=== PATIENT | male | born 1950 | race Caucasian/White ===

== ENCOUNTER 2016-04-06 07:18 | Emergency (ER) | payer BC ==
[2016-04-06 07:41] VITALS: BP 136/67
--- NOTE | 2016-04-06 09:02 | RAD ---
CLINICAL HISTORY: Flank pain, hematuria COMPARISON: October 02, 2005 TECHNIQUE: Multiple contiguous axial CT scans were obtained of the abdomen and pelvis, without intravenous contrast enhancement. Coronal and sagittal multiplanar reformations are submitted for review. Oral contrast was not administered. FINDINGS: The study is limited by the lack of intravenous contrast. This limits evaluation of the solid organs and vasculature. LUNG BASES: The lung bases are clear. LIVER: The liver is diffusely low in attenuation compared to the spleen. There are no focal hepatic parenchymal masses. The liver measures 20 cm in long axis. BILE DUCTS: There is no intrahepatic or extrahepatic biliary dilatation. GALLBLADDER: The gallbladder is normal, without pericholecystic inflammatory change. PANCREAS: The pancreas is normal, without mass or ductal dilatation. SPLEEN: Normal in size and appearance. UPPER GI TRACT: Evaluation of the gastrointestinal tract is limited by incomplete gastric distention. The upper GI tract is unremarkable. SMALL BOWEL AND MESENTERY: The small bowel is normal in contour, course, and caliber. There is no obstruction or dilatation. COLON: There are multiple diverticula of the sigmoid colon. There is no pericolonic inflammatory change. ADRENALS: Normal bilaterally. KIDNEYS: There are multiple bilateral renal calyceal stones. There is a 0.3 cm calculus of the right UPJ with mild pelvocaliectasis and stranding of the perinephric fat on the right. BLADDER: The bladder is smooth in contour. PELVIC ORGANS: The prostate gland is normal. The seminal vesicles are symmetric. AORTA: The aorta is normal. IVC: Unremarkable LYMPH NODES: There is no lymphadenopathy by size criteria. ABDOMINAL WALL: There is no evidence for abdominal wall hernia. BONES AND SOFT TISSUES: Degenerative changes are noted of the spine OTHER: None IMPRESSION: 1. BILATERAL RENAL STONES, INCLUDING A 0.3 CM CALCULUS OF THE RIGHT UPJ WITH MILD RIGHT-SIDED HYDRONEPHROSIS AND PERINEPHRIC STRANDING. 2. HEPATOMEGALY WITH FATTY INFILTRATION OF THE LIVER. 3. DIVERTICULOSIS.
--- NOTE | 2016-04-06 10:14 | UC ---
Sean Banks Matthew, scribed for Idalia Villafana DO on 04/06/16 at 0828 . Back Pain HPI - HPI Summary HPI Summary: A 66 y/o male presents to [facility] with right flank pain since last night. The pain is rated 5/10 in severity, described as sharp, and radiates to the front. The pain was at its worst at 04:30 this morning. Associated symptoms include decreased urination. The patient denies fever, chills, nausea, vomiting, chest pain, SOB, coughing, sore throat, ear ache, and headache. The patient has a Hx of back pain and diabetes. - History of Current Complaint Chief Complaint: UCGeneralIllness Stated Complaint: ABDOMINAL PAIN Time Seen by Provider: 04/06/16 08:15 Hx Obtained From: Patient Onset/Duration: Gradual Onset, Lasting Days - since last night, Still Present Timing: Constant Severity Initially: Moderate Severity Currently: Mild Pain Intensity: 5 Pain Scale Used: 0-10 Numeric Back Pain: Is Discrete @ - right flank, Radiates To - the right side of the abdomen Character: Sharp Associated Signs And Symptoms: Positive: Abdominal Pain - that radiates from the right flank, Flank Pain - right. Negative: Fever, Weakness, Numbness, Tingling, Bladder Incontinence, Bowel Incontinence - Allergies/Home Medications Allergies/Adverse Reactions: Allergies Allergy/AdvReac Type Severity Reaction Status Date / Time Ciprofloxacin [From Cipro] Allergy See Comment Verified 02/25/16 14:39 Sulfa Antibiotics Allergy Rash Verified 02/25/16 14:39 Flavocoxid [From Limbrel] AdvReac FLU LIKE Verified 02/25/16 14:39 SYMPTOMS Lactose Intolerance (GI) AdvReac GI Upset Verified 02/25/16 14:39 PMH/Surg Hx/FS Hx/Imm Hx Endocrine History Of: Reports: Diabetes - ON ORAL MEDICATIONS Cardiovascular History Of: Denies: Hypertension, Pacemaker/ICD Respiratory History Of: Reports: Asthma - IMPROVED SINCE HAVING SINUS SURGERY AROUND 2009, Bronchitis GI/ History Of: Reports: Kidney Stones - HISTORY OF- NONE RECENTLY. Followed by Dr Palacios Denies: Renal Disease - Surgical History Surgical History: Yes Surgery Procedure, Year, and Place: 2009-SINUS SURGERY-WAS TOLD BY ANESTHESIOLOGIST- THAT HE HAD A DIFFICULT [id number]. FINE. SIGMOIDOSCOPY- 6 MONTHS AGO- 2 POLYPS REMOVED. KNEE SURGERY-1994. CARPAL TUNNEL RELEASE-, BILATERAL HANDS. TONSILLECTOMY AND ADENOIDECTOMY- AGE 3. DEQUERVAINS SURGERY- - Family History Known Family History: Positive: Cardiac Disease, Hypertension, Diabetes - Social History Lives: With Family Alcohol Use: Occasionally Substance Use Type: None Smoking Status (MU): Never Smoked Tobacco Review of Systems Constitutional: Negative Skin: Negative Eyes: Negative ENT: Negative Respiratory: Negative Cardiovascular: Negative Gastrointestinal: Abdominal Pain - radiating pain from the right flank Genitourinary: Other - decreased urination frequency Motor: Negative Neurovascular: Negative Musculoskeletal: Myalgia - Right Flank Pain that radites to the abdomen Neurological: Negative Psychological: Negative All Other Systems Reviewed And Are Negative: Yes Physical Exam Triage Information Reviewed: Yes Appearance: Well-Appearing, No Pain Distress, Well-Nourished, Obese Vital Signs: Initial Vital Signs Temp 98.7 F 04/06/16 07:35 Pulse 84 04/06/16 07:35 Resp 16 04/06/16 07:35 BP 136/67 04/06/16 07:35 Pulse Ox 98 04/06/16 07:35 Vital Signs Reviewed: Yes Eyes: Positive: Conjunctiva Clear. Negative: Discharge ENT: Positive: Hearing grossly normal. Negative: Muffled/hoarse voice Dental Exam: Normal Neck: Positive: Supple, Nontender Respiratory: Positive: Lungs clear, Normal breath sounds, No respiratory distress, No accessory muscle use Cardiovascular: Positive: RRR, No Murmur Abdomen Description: Positive: Nontender, Soft. Negative: CVA Tenderness (R), CVA Tenderness (L), Distended, Guarding, McBurney's Point Tenderness Musculoskeletal Exam: Normal Neurological: Positive: Alert, Muscle Tone Normal Psychological Exam: Normal Psychological: Positive: Age Appropriate Behavior Skin Exam: Normal Skin: Positive: Other - warm, dry, normal color Diagnostics - Radiology A/P CT Xray Interpretation: Positive (See Comments) - IMPRESSION: 1. BILATERAL RENAL STONES, INCLUDING A 0.3 CM CALCULUS OF THE RIGHT UPJ WITH MILD RIGHT-SIDED HYDRONEPHROSIS AND PERINEPHRIC STRANDING. 2. HEPATOMEGALY WITH FATTY INFILTRATION OF THE LIVER. 3. DIVERTICULOSIS. Radiology Interpretation Completed By: Radiologist Back Pain Course/Dx - Differential Dx/Diagnosis Differential Diagnosis/HQI/PQRI: Renal Colic, Strain, Sprain Provider Diagnoses: obstructing kidney stone, hydronephrosis, possible pyelo Discharge - Discharge Plan Condition: Stable Disposition: TRANS HIGHER LVL OF CARE FAC Discharge Disposition Comment: The patient needs further care and management at the ED. Referrals: Mahad Siegel MD [Primary Care Provider] - Chris Palacios MD [Medical Doctor] - The documentation as recorded by the Sean edwards Matthew accurately reflects the service I personally performed and the decisions made by , Idalia Villafana DO.
== END 2016-04-06 10:10 | disposition left against medical advice (07) ==
LOC: UCEAST 07:18
DX: N13.2 Hydronephrosis with renal and ureteral calculous obstruction (principal); B96.89 Other specified bacterial agents as the cause of diseases classified elsewhere; Z87.442 Personal history of urinary calculi; E11.9 Type 2 diabetes mellitus without complications; Z79.84 Long term (current) use of oral hypoglycemic drugs; Z87.09 Personal history of other diseases of the respiratory system
CPT/HCPCS: 74176; 81002; 87086; 99212; G0463

== ENCOUNTER → 2016-04-06 10:24 | Emergency (ER) | payer BC ==
[~2016-04-06 10:24] MED LIST: NS 0.9% 1000 ML* 2,000 ML IV ONE; Tamsulosin CAP* 0.4 MG PO ONE
[2016-04-06 10:55] VITALS: BP 169/89
[2016-04-06 11:58] LABS: Hematocrit 42 % (42-52); Hemoglobin 14.1 g/dl (14.0-18.0); Mean Corpuscular HGB Conc 34 g/dl (31-36); Mean Corpuscular Hemoglobin 28 pg (27-31); Mean Corpuscular Volume 83 fL (80-94); Mean Platelet Volume 9 um3 (7.4-10.4); Red Blood Count 5.06 10^6/ul (4.0-5.4); Red Cell Distribution Width 14 % (10.5-15); White Blood Count 9.2 10^3/ul (3.5-10.8)
[2016-04-06 12:07] LABS: Urine Bacteria Absent (Absent); Urine Bilirubin Negative (Negative); Urine Glucose Negative (Negative); Urine Nitrite Negative (Negative)
[2016-04-06 12:14] LABS: Albumin 3.9 g/dL (3.2-5.2); BUN/Creatinine Ratio 16.3 (8-20); C Reactive Protein 5.63 mg/L (< 5.00); Calcium 8.9 mg/dL (8.6-10.3); EGFR African American 113.7 (>60); EGFR Non-African American 88.4 (>60); Globulin 2.9 g/dL (2-4); Potassium 3.9 mmol/L (3.5-5.0); Total Bilirubin 0.7 mg/dL (0.2-1.0); Total Protein 6.8 g/dL (6.4-8.9)
--- NOTE | 2016-04-06 13:29 | ED ---
Keyshawn Banks Adam, scribed for Shankar May MD on 04/06/16 at 1116 . GI/ HPI - HPI Summary HPI Summary: A 66 y/o male presents to the ED from [facility] c/o right flank pain that started around midnight and got progressively worse until 0500 this morning. Currently he rates the pain as 4/10 after taking 1.5 endocet. Symptoms include decreased urine output and nausea due to the pain. He denies any fever or chills. Patient has a hx of kidney stones. Abdominal CT results from [facility] reveal bilateral renal stones, including a .3 cm calculus of the right UPJ with mild hydronephrosis and perinephric stranding, hepatomegaly, and diverticulosis. PMHx is positive for kidney stones and diabetes. FHx includes cardiac disease, HTN, and DM. - History of Current Complaint Chief Complaint: EDFlankPain Time Seen by Provider: 04/06/16 10:57 Stated Complaint: KIDNEY PAIN Hx Obtained From: Patient Onset/Duration: Started Hours Ago Timing: Constant Severity: Moderate Current Severity: Moderate Pain Intensity: 4 Location of Pain: Flank - Right Associated Signs and Symptoms: Positive: Nausea - from pain, Other: - Decreased urine output Aggravating Factor(s): Nothing Alleviating Factor(s): Medication - Endocet - Allergy/Home Medications Allergies/Adverse Reactions: Allergies Allergy/AdvReac Type Severity Reaction Status Date / Time Ciprofloxacin [From Cipro] Allergy See Comment Verified 02/25/16 14:39 Sulfa Antibiotics Allergy Rash Verified 02/25/16 14:39 Flavocoxid [From Limbrel] AdvReac FLU LIKE Verified 02/25/16 14:39 SYMPTOMS Lactose Intolerance (GI) AdvReac GI Upset Verified 02/25/16 14:39 PMH/Surg Hx/FS Hx/Imm Hx Endocrine/Hematology History: Reports: Hx Diabetes - ON ORAL MEDICATIONS Cardiovascular History: Reports: Other Cardiovascular Problems/Disorders - DVT- RIGHT LEG 46 YEARS AGO Denies: Hx Hypertension, Hx Pacemaker/ICD Respiratory History: Reports: Hx Asthma - IMPROVED SINCE HAVING SINUS SURGERY AROUND 2009, Hx Sleep Apnea History: Reports: Hx Kidney Stones - HISTORY OF- NONE RECENTLY. Followed by Dr Palacios Denies: Hx Renal Disease Musculoskeletal History: Reports: Hx Arthritis, Hx Tendonitis - HISTORY OF IN [place], RIGHT WRIST Sensory History: Reports: Hx Contacts or Glasses Denies: Hx Hearing Aid Opthamlomology History: Reports: Hx Contacts or Glasses Neurological History: Reports: Other Neuro Impairments/Disorders - PAIN CLINIC PT Psychiatric History: Denies: Hx Panic Disorder - Surgical History Surgery Procedure, Year, and Place: 2009-SINUS SURGERY-WAS TOLD BY ANESTHESIOLOGIST- THAT HE HAD A DIFFICULT [id number]. FINE. SIGMOIDOSCOPY- 6 MONTHS AGO- 2 POLYPS REMOVED. KNEE SURGERY-1994. CARPAL TUNNEL RELEASE-, BILATERAL HANDS. TONSILLECTOMY AND ADENOIDECTOMY- AGE 3. DEQUERVAINS SURGERY- Hx Anesthesia Reactions: No Infectious Disease History: No Infectious Disease History: Denies: History Other Infectious Disease, Traveled Outside the [place] in Last 30 Days - Family History Known Family History: Positive: Cardiac Disease, Hypertension, Diabetes - Social History Alcohol Use: Occasionally Substance Use Type: Reports: None Smoking Status (MU): Never Smoked Tobacco Review of Systems Constitutional: Negative Negative: Fever Eyes: Negative ENT: Negative Cardiovascular: Negative Respiratory: Negative Positive: Nausea - From pain Positive: pain - Right flank, other - decreased urine output Musculoskeletal: Negative Skin: Negative Neurological: Negative Psychological: Normal All Other Systems Reviewed And Are Negative: Yes Physical Exam Triage Information Reviewed: Yes Vital Signs On Initial Exam: Initial Vitals Temp Pulse Resp BP Pulse Ox 98.5 F 77 16 169/89 99 04/06/16 10:49 04/06/16 10:49 04/06/16 10:49 04/06/16 10:49 04/06/16 10:49 Vital Signs Reviewed: Yes Skin: Positive: Warm, Skin Color Reflects Adequate Perfusion, Dry Head/Face: Positive: Normal Head/Face Inspection Eyes: Positive: EOMI, JOSE ENT: Positive: Normal ENT inspection Neck: Positive: Supple, Nontender Respiratory/Lung Sounds: Positive: Clear to Auscultation, Breath Sounds Present Cardiovascular: Positive: RRR Abdomen Description: Positive: Soft, CVA Tenderness (R) Bowel Sounds: Positive: Present Musculoskeletal: Positive: Normal Neurological: Positive: Normal, Sensory/Motor Intact, Alert, Oriented to Person Place, Time Psychiatric: Positive: Affect/Mood Appropriate Diagnostics - Vital Signs Vital Signs Temp Pulse Resp BP Pulse Ox 04/06/16 10:49 98.5 F 77 16 169/89 99 - Laboratory Lab Results: Lab Results 04/06/16 04/06/16 04/06/16 Range/Units 11:45 11:45 11:45 WBC 9.2 (3.5-10.8) 10^3/ul RBC 5.06 (4.0-5.4) 10^6/ul Hgb 14.1 (14.0-18.0) g/dl Hct 42 (42-52) % MCV 83 (80-94) fL MCH 28 (27-31) pg MCHC 34 (31-36) g/dl RDW 14 (10.5-15) % Plt Count 245 (150-450) 10^3/ul MPV 9 (7.4-10.4) um3 Neut % (Auto) 58.1 (38-83) % Lymph % (Auto) 29.8 (25-47) % Baxter % (Auto) 8.1 (1-9) % Eos % (Auto) 2.9 (0-6) % Baso % (Auto) 1.1 (0-2) % Absolute Neuts (auto) 5.4 (1.5-7.7) 10^3/ul Absolute Lymphs (auto) 2.7 (1.0-4.8) 10^3/ul Absolute Monos (auto) 0.7 (0-0.8) 10^3/ul Absolute Eos (auto) 0.3 (0-0.6) 10^3/ul Absolute Basos (auto) 0.1 (0-0.2) 10^3/ul Absolute Nucleated RBC 0.01 10^3/ul Nucleated RBC % 0.2 INR (Anticoag Therapy) 0.96 (0.89-1.11) APTT 31.6 (26.0-36.3) seconds Sodium (133-145) mmol/L Potassium (3.5-5.0) mmol/L Chloride (101-111) mmol/L Carbon Dioxide (22-32) mmol/L Anion Gap (2-11) mmol/L BUN (6-24) mg/dL Creatinine (0.67-1.17) mg/dL Est GFR ( Amer) (>60) Est GFR (Non-Af Amer) (>60) BUN/Creatinine Ratio (8-20) Glucose (70-100) mg/dL Lactic Acid (0.5-2.0) mmol/L Calcium (8.6-10.3) mg/dL Total Bilirubin (0.2-1.0) mg/dL AST (13-39) U/L ALT (7-52) U/L Alkaline Phosphatase (34-104) U/L C-Reactive Protein (< 5.00) mg/L Total Protein (6.4-8.9) g/dL Albumin (3.2-5.2) g/dL Globulin (2-4) g/dL Albumin/Globulin Ratio (1-3) Lipase (11.0-82.0) U/L Urine Color Straw Urine Appearance Clear Urine pH 5.0 (5-9) Ur Specific [place] 1.004 L (1.010-1.030) Urine Protein Negative (Negative) Urine Ketones Negative (Negative) Urine Blood 2+ H (Negative) Urine Nitrate Negative (Negative) Urine Bilirubin Negative (Negative) Urine Urobilinogen Negative (Negative) Ur Leukocyte Esterase Negative (Negative) Urine WBC (Auto) Trace(0-5/hpf) (Absent) Urine RBC (Auto) 1+(3-5/hpf) H (Absent) Ur Squamous Epith Cells Present H (Absent) Urine Bacteria Absent (Absent) Urine Glucose Negative (Negative) 04/06/16 04/06/16 Range/Units 11:45 11:45 WBC (3.5-10.8) 10^3/ul RBC (4.0-5.4) 10^6/ul Hgb (14.0-18.0) g/dl Hct (42-52) % MCV (80-94) fL MCH (27-31) pg MCHC (31-36) g/dl RDW (10.5-15) % Plt Count (150-450) 10^3/ul MPV (7.4-10.4) um3 Neut % (Auto) (38-83) % Lymph % (Auto) (25-47) % Baxter % (Auto) (1-9) % Eos % (Auto) (0-6) % Baso % (Auto) (0-2) % Absolute Neuts (auto) (1.5-7.7) 10^3/ul Absolute Lymphs (auto) (1.0-4.8) 10^3/ul Absolute Monos (auto) (0-0.8) 10^3/ul Absolute Eos (auto) (0-0.6) 10^3/ul Absolute Basos (auto) (0-0.2) 10^3/ul Absolute Nucleated RBC 10^3/ul Nucleated RBC % INR (Anticoag Therapy) (0.89-1.11) APTT (26.0-36.3) seconds Sodium 136 (133-145) mmol/L Potassium 3.9 (3.5-5.0) mmol/L Chloride 101 (101-111) mmol/L Carbon Dioxide 26 (22-32) mmol/L Anion Gap 9 (2-11) mmol/L BUN 14 (6-24) mg/dL Creatinine 0.86 (0.67-1.17) mg/dL Est GFR ( Amer) 113.7 (>60) Est GFR (Non-Af Amer) 88.4 (>60) BUN/Creatinine Ratio 16.3 (8-20) Glucose 169 H (70-100) mg/dL Lactic Acid 3.5 H* (0.5-2.0) mmol/L Calcium 8.9 (8.6-10.3) mg/dL Total Bilirubin 0.70 (0.2-1.0) mg/dL AST 29 (13-39) U/L ALT 30 (7-52) U/L Alkaline Phosphatase 62 (34-104) U/L C-Reactive Protein 5.63 H (< 5.00) mg/L Total Protein 6.8 (6.4-8.9) g/dL Albumin 3.9 (3.2-5.2) g/dL Globulin 2.9 (2-4) g/dL Albumin/Globulin Ratio 1.3 (1-3) Lipase 65 (11.0-82.0) U/L Urine Color Urine Appearance Urine pH (5-9) Ur Specific [place] (1.010-1.030) Urine Protein (Negative) Urine Ketones (Negative) Urine Blood (Negative) Urine Nitrate (Negative) Urine Bilirubin (Negative) Urine Urobilinogen (Negative) Ur Leukocyte Esterase (Negative) Urine WBC (Auto) (Absent) Urine RBC (Auto) (Absent) Ur Squamous Epith Cells (Absent) Urine Bacteria (Absent) Urine Glucose (Negative) Result Diagrams: 04/06/16 11:45 04/06/16 11:45 Lab Statement: Any lab studies that have been ordered have been reviewed, and results considered in the medical decision making process. GIGU Course/Dx - Course Assessment/Plan: DISCUSSED RESULTS WITH PATIENT/FAMILY/DR LAWRENCE. NO EVIDENCE OF UTI. DISCHARGE HOME STABLE. - Diagnoses Provider Diagnoses: Kidney stones - Physician Notifications Discussed Care Of Patient With: Dr. Lawrence (Urology, 13:05) - Recommends treatment for kidney stone and follow up outpatient. Discharge - Discharge Plan Condition: Stable Disposition: HOME Prescriptions: Tamsulosin CAP* [Flomax CAP*] 0.4 mg PO DAILY #5 cap Patient Education Materials: Kidney Stones (ED) Referrals: Mahad Siegel MD [Primary Care Provider] - Gustavo Lawrence MD [Medical Doctor] - [facility] [Provider Group] Chris Palacios MD [Medical Doctor] - Additional Instructions: FOLLOW UP WITH YOUR UROLOGIST. RETURN TO THE EMERGENCY DEPARTMENT FOR ANY WORSENING OF YOUR CONDITION; PAIN, FEVER, VOMITING, YOU FEEL ILL OR QUESTIONS OR CONCERNS. The documentation as recorded by the Keyshawn edwards Adam accurately reflects the service I personally performed and the decisions made by me, Shankar May MD.
== END | disposition home or self-care (01) ==
LOC: ED 10:24
DX: N20.0 Calculus of kidney (principal); R10.9 Unspecified abdominal pain; R11.0 Nausea
CPT/HCPCS: 36415; 80053; 81003; 81015; 83605; 83690; 85025; 85610; 85730; 86140; 96360; 99282

== ENCOUNTER 2018-08-10 05:35 | Day surgery (SDC) | payer BC ==
--- NOTE | 2018-08-07 22:34 | HP ---
PREOPERATIVE HISTORY AND PHYSICAL: DATE OF SURGERY: 08/10/18 ATTENDING SURGEON: Dr. Joe Sebastian.* (DICTATED BY LLUVIA BEJARANO) PROCEDURE: Right shoulder arthroscopic rotator cuff repair, decompression, debridement, arthroscopic excision of distal clavicle, possible biceps tenodesis. CHIEF COMPLAINT: Right shoulder pain. HISTORY OF PRESENT ILLNESS: Sravan is a 68-year-old male who presents to the clinic for right shoulder pain due to a rotator cuff tear, AC joint arthritis, and biceps tendinitis. He has failed conservative measures including therapeutic injection. He has therefore agreed to undergo right shoulder arthroscopic rotator cuff repair, decompression, debridement, arthroscopic excision of distal clavicle and possible biceps tenodesis with Dr. Sebastian on . PAST MEDICAL HISTORY: 1. Diabetes. 2. High cholesterol. 3. Obstructive sleep apnea. 4. Asthma/allergies. 5. Hypertension. 6. Kidney stones. 7. BPH. 8. Hemorrhoids. PAST SURGICAL HISTORY: 1. Tonsillectomy and adenoidectomy. 2. Knee surgery. 3. Bilateral carpal tunnel release. 4. Right de Quervain's. 5. Sinus surgery. The patient denies prior complications with anesthesia. MEDICATIONS: 1. Lovaza 1 g 2 by mouth twice a day. 2. Endocet 5/325 one every day as needed for pain. 3. CPAP at night. 4. Atorvastatin 10 mg at bedtime. 5. Metformin HCL 500 mg two twice a day. 6. Triamcinolone topical as needed. 7. Albuterol sulfate 0.083% one via nebulizer 4 times a day as needed. 8. Budesonide 0.5 mg/2 mL one dose twice a day via nebulizer as needed. 9. Ammonium lactate 12% to affected area twice a day as needed. 10. Viagra 100 mg 0.5 to 1 tab one hour before intercourse. 11. Ventolin HFA 108-90 base mcg/ACT 2 puffs 4 times a day as needed. 12. QVAR 80 mcg 2 puffs a day as needed. 13. Nasacort 24 hours 55 mcg/ACT 2 sprays both nares once daily. 14. Lisinopril 5 mg 1 by mouth every day. 15. Glipizide 10 mg 1 by mouth daily. ALLERGIES: CIPRO, SULFA, ANTIBIOTICS, LIMBREL, lactose intolerance, FLAVOCOXID and CHOCOLATE ALLERGENIC EXTRACT. FAMILY HISTORY: Positive for heart disease, diabetes, hypertension. Denies family history of DVT or PE. SOCIAL HISTORY: He lives with his spouse. He is a [employer] professor. He denies tobacco use. He reports occasional alcohol consumption. He denies illegal drug use. REVIEW OF SYSTEMS: A 14-point review of systems was reviewed with the patient. Positive for current complaint, otherwise negative. Denies fever, chills, chest pain, shortness of breath, history of bleeding disorder, history of DVT or PE. PHYSICAL EXAMINATION GENERAL: A 68-year-old well-developed, well-nourished male, in no acute distress. VITALS: Height 64, weight 275, blood pressure 154/68, respiratory rate 18. BMI 47.2. HEENT: Normocephalic, atraumatic. PERRLA. Throat clear. NECK: Supple. PULMONARY: Lungs are clear to auscultation bilaterally. No wheezing, rhonchi, or rales. CARDIO: Regular rat and rhythm. S1, S2. No murmurs, gallops, or rubs. No edema. ABDOMEN: Positive bowel sounds. Soft, nontender. NEURO: Alert and oriented x3. Cranial nerves grossly intact. MUSCULOSKELETAL: Right upper extremity: Skin is intact. No warmth or erythema. Nontender to palpation. Forward flexion 160, abduction 90, external rotation 45, internal rotation to lumbar spine. +4/5 strength to rotator cuff testing obtained. Positive impingement, [place], [place], [place]. +2 radial pulse. Sensation intact to light touch distally. Left upper extremity: Skin is intact. No warmth or erythema. Nontender to palpation. Full strength with range of motion. Neurovascularly intact. DIAGNOSTIC STUDIES: MRI revealed full thickness tear of the supraspinatus tendon and acromial bone spurring, and AC joint arthritis. IMPRESSION: Right shoulder rotator cuff tear, acromioclavicular joint arthritis , and biceps tendinitis. PLAN: The patient is scheduled to undergo a right shoulder arthroscopic rotator cuff repair, decompression, debridement, arthroscopic excision of distal clavicle, and possible biceps tenodesis with Dr. Sebastian on 08/10/18. He will follow up in 10 to 14 days postop for followup and suture removal and Percocet will be used for postop pain management. LLUVIA BEJARANO [id number]/[facility] #: [id number] [facility]
[~2018-08-10 05:35] MED LIST changes: +Buffered Lidocaine 1% SYRIN* 1 ML/SYRINGE INTRADERM ONE; -NS 0.9% 1000 ML* 2,000 ML IV ONE; -Tamsulosin CAP* 0.4 MG PO ONE
[2018-08-10] MEDS ORDERED: Dexamethasone IV* 4 MG/ML 1 ML (4 MG) ONE (05:55)
[2018-08-10] MEDS ORDERED: ceFAZolin 2 GM PREMIX in ORs 2 GM/50 ML BAG IVPB ONE (05:55)
[2018-08-10] MEDS ORDERED: Buffered Lidocaine 1% SYRIN* 1 ML/SYRINGE INTRADERM ONE (05:56)
[2018-08-10] MEDS ORDERED: ceFAZolin 1 GM in Dextrose (*) 1 GM/50 ML BAG IVPB ONE (05:56)
[2018-08-10] MEDS ORDERED: Famotidine IV* 10 MG/ML 2 ML (20 mg) ONE (05:56)
[2018-08-10] MEDS ORDERED: Dexamethasone IV* 4 MG/ML 1 ML (4 MG) IV SLOW PU ONE (06:00)
[2018-08-10] MEDS ORDERED: Lactated Ringers 1000 ML Bag* 1,000 ML IV SCH (06:00)
[2018-08-10] MEDS ORDERED: Famotidine IV* 10 MG/ML 2 ML (20 mg) IV ONE (06:00)
[2018-08-10] MEDS ORDERED: ROPIVACAINE 5 MG/ML 30 ML BTL (0.5%) ONE (06:58)
[2018-08-10] MEDS ORDERED: Midazolam* 1 MG/ML 5 ML VIAL (5 MG) ONE (07:11)
[2018-08-10] MEDS ORDERED: fentaNYL* 50 MCG/ML 2 ML VIAL (100 MCG VIAL) ONE ×4 (07:11→10:02)
[2018-08-10] MEDS ORDERED: Rocuronium* 10 MG/ML VIAL ONE (07:11)
[2018-08-10] MEDS ORDERED: Propofol* 10 MG/ML 20 ML BTL ONE (07:12)
[2018-08-10] MEDS ORDERED: EPHEDrine (Pressors)* 50 MG/ML VIAL ONE (07:12)
[2018-08-10] MEDS ORDERED: Ondansetron INJ* 2 MG/ML VIAL ONE ×2 (07:12→12:34)
[2018-08-10] MEDS ORDERED: Lidocaine 2% PF * 5 ML VIAL ONE (07:12)
[2018-08-10] MEDS ORDERED: Naloxone* 0.4 MG/ML 1 ML VIAL IV PRN (08:32)
[2018-08-10] MEDS ORDERED: oxyCODONE/Acetamin 5/325 MG* TAB PO PRN (08:32)
[2018-08-10] MEDS ORDERED: Ondansetron INJ* 2 MG/ML VIAL IV PRN (08:32)
[2018-08-10] MEDS ORDERED: DiMENhydriNATE IV* 50 MG/ML VIAL IV PUSH PRN (08:32)
[2018-08-10] MEDS ORDERED: Sugammadex * 200 MG/2 ML VIAL IV PUSH ONE (09:56)
[2018-08-10] MEDS: fentaNYL* 50 MCG/ML 2 ML VIAL (100 MCG VIAL) IV PRN ×2 (10:05→10:15)
[2018-08-10] MEDS ORDERED: oxyCODONE/Acetamin 5/325 MG* TAB ONE ×2 (10:25→12:14)
[2018-08-10] MEDS ORDERED: HYDROmorphone INJ1* 1 MG/ML SYRINGE ONE (10:25)
[2018-08-10] MEDS: HYDROmorphone INJ1* 1 MG/ML SYRINGE IV PRN ×4 (10:27→11:32)
[2018-08-10 12:01] VITALS: BP 150/88
--- NOTE | 2018-08-10 13:05 | OP ---
DATE OF OPERATION: 08/10/18 - [facility] DATE OF : 46 SURGEON: Joe Sebastian MD. E [employer] MARKETING MANAGER: LLUVIA Snider. Quality Officer was needed for the entirety of the case to help with positioning, retraction, and was utilized throughout all portions of the case. ANESTHESIOLOGIST: Dr. Archuleta. ANESTHESIA: General interscalene block. PRE-OP DIAGNOSES: Right shoulder full-thickness tear of the rotator cuff with biceps rupture and acromioclavicular joint arthritis. POST-OP DIAGNOSIS: Right shoulder full thickness tear of the rotator cuff with biceps rupture and acromioclavicular joint arthritis. OPERATIVE PROCEDURE: Right shoulder arthroscopy: 1. Extensive glenohumeral debridement. 2. Decompression and debridement. 3. Distal clavicle excision. 4. Rotator cuff repair in double row fashion. IMPLANTS USED: Two Multifixes, 2 Healicoils. INDICATIONS: Sravan De Leon is a 68-year-old male who sustained injury to his shoulder when he caught his toe in [place] 03[place]03[place]; he had immediate pain and injury. He failed a course of physical therapy, anti- inflammatories and has elected to proceed with surgical treatment. Risks and benefits were discussed at length including, but not limited to bleeding, infection; damage to nerves, vessels, surrounding structures; wound nonhealing, persistent pain, need for surgery, scarring, stiffness, incomplete relief of symptoms and risk of anesthesia, need for further surgery and re-tear. DESCRIPTION OF PROCEDURE: The patient was greeted in the preoperative area by the attending surgeon. The correct extremity was marked and consent was confirmed. The patient then underwent interscalene nerve block by the anesthesiologist after which he was brought back to operating suite. He was placed in a supine position on the operating table. He then underwent general anesthesia with endotracheal intubation. The patient was then placed in the left lateral decubitus position with an axillary roll, all bony prominences were padded. He was secured with the peg board. The right arm was draped unsterile with 10 pounds of traction. The right shoulder was then prepped and draped in usual sterile fashion beginning with chlorhexidine soap, scrub and alcohol wipe and a final prep with ChloraPrep. After appropriate surgical pause indicating site, side, procedure, and administration of antibiotics, standard postero-lateral portal was made sharply with an 11 blade. The scope was introduced into the joint, and the joint was examined. There was obvious tearing of the biceps tendon with significant frayed tissue, and the biceps stump was flapped into the joint. The glenohumeral joint had grade 1 to 2 changes. The inferior recess was intact, but had significant synovitis. Portion of the supra and subscap were torn and retracted and still in confluence with each other. The infraspinatus seemed to be intact. The inferior border portion of the subscap was intact. The biceps stump and anterior, posterior, superior labrum were debrided back using a shaver. Once this was complete, attention was directed to subacromial space. With the scope in the subacromial space, the lateral portal was made in an outside- in fashion. The shaver was used to debride back the abundant thick bursa that was present. It was very hyperemic and inflamed. The undersurface of the acromion was then skeletonized using electrocautery device. The 4,0 oval andres was then used to do an acromioplasty extending into the AC joint, which was then offloaded, debris was removed. Once this was done, attention was directed to the distal clavicle excision with the andres brought into the anterior wound. The 4,0 oval andres was used to remove the distal 8 mm of the clavicle and remove any areas of impingement. Care was maintained to protect the CC ligaments. After this was completed, all fluid and debris was removed from this portion of the case. Attention was directed to the rotator cuff. This was a full-thickness, medium- size tear involving the supra and subscapularis. The cuff tissue was good quality. The cuff tissue was carefully mobilized and released from adhesions. The greater tuberosity was repaired using electrocautery device, the rasp as well as the 4,0 oval andres to gentle decorticate. There was a remaining stump that had to be debrided back on the greater tuberosity. Once this was done, two 4.75 Healicoils were placed, one was placed more anteriorly to grab the subscap fibers, and both along the medial row. The sutures were passed in a horizontal mattress configuration. The cuff tissue was fairly thick at some point indicating probably a piece had flapped back on itself. Once the sutures were passed, they were tied down using center knot-tying technique. This helped to reapproximate the cuff to the bone. Then, through 2 separate Multifixes, one strand from each knot was then placed through an anterolateral Multifix for double row fixation. The remaining strands were placed through the second Multifix sutures placed for posterior lateral double row. This helped to compress the footprint and provide for double row fixation. Final images were obtained. The wound was copiously irrigated with sterile saline. Portals were closed with 3-0 nylon. Sterile dressings were applied, Cryo/Cuff and UltraSling was applied. He was awoken from anesthesia and transferred to PACU in stable condition. POSTOPERATIVE PLAN: He will be nonweightbearing. He will be in a sling for 6 weeks. Discharged on pain medication. DVT prophylaxis was considered, but deferred due to no previous personal or family history. I will see the patient back in 10 to 14 days. [id number]/[facility] #: [id number] LISET
== END 2018-08-10 15:10 | disposition home or self-care (01) ==
LOC: OR 05:35
PROVIDERS: ATTEND Orthopaedic Surgery
DX: S46.011A Strain of muscle(s) and tendon(s) of the rotator cuff of right shoulder, initial encounter (principal); S46.111A Strain of muscle, fascia and tendon of long head of biceps, right arm, initial encounter; W01.0XXA Fall on same level from slipping, tripping and stumbling without subsequent striking against object, initial encounter; Y92.481 Parking lot as the place of occurrence of the external cause; M19.011 Primary osteoarthritis, right shoulder; G89.18 Other acute postprocedural pain; E11.9 Type 2 diabetes mellitus without complications; Z79.84 Long term (current) use of oral hypoglycemic drugs; G47.33 Obstructive sleep apnea (adult) (pediatric); J45.909 Unspecified asthma, uncomplicated; I10 Essential (primary) hypertension
CPT/HCPCS: A9270-GY; C1713; J0690; J1100; J1170; J2250; J2405; J2704; J2795; J3010

== ENCOUNTER 2019-06-03 22:01 | Emergency (ER) | payer BC ==
--- OUTSIDE RECORDS SUMMARY | 2019-06-03 22:15 | XMS REPORT | Continuity of Care Document ---
:1950 External Reference #:[id number] Author Name CRISTINA Hdez Address [address] [place] [address] Care Team Providers Name Role Phone Chris Palacios - Urology Care Team Information Pharmacometrician [phone] Mahad Siegel MD - Family Medicine Care Team Information Pharmacometrician Jennifer Lauren MD - Neurology Care Team Information Pharmacometrician [phone] Gastroenterology [facility] - Care Team Information Pharmacometrician [phone] Gastroenterology Zabrina Pace MS - [place] Care Team Information Pharmacometrician [phone] [place] Almodovar - Surgery Care Team Information Pharmacometrician [phone] Joe Sebastian - Orthopaedic Surgery Care Team Information Pharmacometrician Problems Active Problems Provider Date Hyperlipidemia Mahad Siegel M.D. Onset: 03/05/2008 Benign prostatic hypertrophy without outflow Mahad Siegel M.D. Onset: 10/2007 obstruction Asthma without status asthmaticus Mahad Siegel M.D. Onset: 03/05/2008 Allergic rhinitis Mahad Siegel M.D. Onset: 03/05/2008 Sleep apnea Mahad Siegel M.D. Onset: 03/17/2010 Type II diabetes mellitus uncontrolled Mahad Siegel M.D. Onset: 2013 Disorder of shoulder Mahad Siegel M.D. Onset: 07/19/2013 Benign neoplasm of colon Mahad Siegel M.D. Onset: 05/10/2017 Mild intermittent asthma Mahad Siegel M.D. Onset: 08/04/2016 Urolith Mahad Siegel M.D. Onset: 08/04/2016 Degeneration of lumbar intervertebral disc Mahad Siegel M.D. Onset: 08/04 Metabolic syndrome X Mahad Siegel M.D. Onset: 03/11/2016 Social History Type Date Description Comments Sex Unknown Tobacco Use Start: Unknown Nonsmoker ETOH Use Rare Tobacco Use Start: Unknown Patient has never smoked Smoking Status Reviewed: 04/10/19 Patient has never smoked Allergies, Adverse Reactions, Alerts Active Allergies Reaction Severity Comments Date Sulfa Drugs Lactose Intolerance 09/06/2008 Flavocoxid fever 04/11/2012 Limbrel fever 04/11/2012 Ciprofloxacin ruptured ligament in knee 07/19/2013 Medications Active Medications SIG Qnty Indications Ordering Provider Date Freestyle Lite Test test blood sugar 100units E11.9 Mahad Siegel, 04/18 twice a day or M.D. Strips as directed dx: e11.9 last seen 04/10/2019 Freestyle Lancets test blood 100units E11.9 Mahad Siegel, 04/18/2019 glucose twice [facility] - dx: e11.9 - last seen 04/10/2019 Pen Afton use daily with 200units Mahad Siegel, 03/09/2019 32G X 4 victoza M.D. mm Misc Victoza 0.6 mg SC qd 9ml E11.65 Mahad Siegel, 03/07/2019 18mg/3ML x1wk, then 1.2 M.D. Solution Pen-Inject mg once daily Lmpaq-4-Geao Ethyl Take 2 Capsules 360caps Mahad Siegel, 05/30/2018 Esters Twice Daily M.D. 1gm Capsules Glipizide 1 by mouth two 180tabs E11.65 Lenore 10/18/2017 10mg times a day Carlos, HAND GRINDER Tablets Lisinopril Take One Tablet 90tabs E11.65 Lenore 08/04/2016 5mg By Mouth Every Carlos, HAND GRINDER Tablets Day Nystatin-Triamcinolo aply to affected 60units B37.2 Mahad Siegel, 09/04 ne area 3 to 4 M.D. times a day 107132-5.1Unit/GM-% until clear Cream Atorvastatin Calcium Take 1 Tablet AT 90tabs Mahad Siegel, 10/03/2013 Bedtime. M.D. 10mg Tablets Metformin HCL take 2 tablets 360tabs E11.65 Mahad Siegel, 10/03/2013 500mg twice a day M.D. Tablets Budesonide 2cc's every 8 60ml Mahad Siegel, 03/27/2013 0.5mg/2ML hours as needed M.D. Suspension wheezing Ammonium Lactate apply daily 3units Mahad Siegel, 09/22/2012 12% M.D. Lotion Endocet 1 every night at 30tabs Shannan C. 03/14/2012 5-325mg bedtime as ESPERANZA Denney Tablets needed for pain Xyzal Allergy 24HR 1 by mouth every Unknown day 5mg Tablets Qnasl 2 sprays in each Unknown 80mcg/Act nostril daily Aerosol Stool Softener Unknown 250mg Capsules Medical Marijuana Unknown History Medications Freestyle Lite Test test blood glucose E11.9 Mahad Siegel, 04/18/2019 - twice daily dx M.D. 04/18/2019 Strips e11.9 last seen 04/10/2019 Gabapentin take one capsule 90caps M51.36 Mahad Siegel, 11/19/2018 - 100mg by mouth three M.D. 03/07/2019 Capsules times a day as needed for pain Immunizations CPT Code Status Date Vaccine Reaction Lot # [id number] Given 12/16/2018 High-Dose, Influenza Virus [id number] Vacccine-fluzone 65 and older 44121 Given 12/09/2017 High-Dose, Influenza Virus [id number] Vacccine-fluzone 65 and older 49492 Given 01/16/2017 High-Dose, Influenza Virus [id number] Vacccine-fluzone 65 and older 72425 Given 01/13/2016 High-Dose, Influenza Virus [id number] Vacccine-fluzone 65 and older 27387 Given 01/18/2015 Influenza Vac, Quadrivalent, [id number] [address] Given 11/09/2014 Pneumococcal Conjugate [id number] Vacc-13 26415 Given 01/04/2014 DO Not Use Split Influenza [id number] Virus Vaccine 25394 Given 12/07/2012 DO Not Use Split Influenza [id number] Virus Vaccine 78874 Given 12/28/2011 DO Not Use Split Influenza Virus Vaccine 94660 Given 12/28/2011 DO Not Use Split Influenza no reaction noted [id number] Virus Vaccine 27975 Given 12/17/2010 DO Not Use Split Influenza [id number] Virus Vaccine 54122 Given 12/25/2009 DO Not Use Split Influenza [id number] Virus Vaccine 73650 Given 11/08/2009 Tdap Tetanus, W Pertussis [id number] 34728 Given 12/10/2008 DO Not Use Split Influenza [id number] Virus Vaccine 02211 Given 03/30/2008 Zostivax [id number] 89963 Given 01/07/2008 DO Not Use Split Influenza [id number] Virus Vaccine 08505 Given 01/22/2007 DO Not Use Split Influenza [id number] Virus Vaccine 42960 Given 02/13/2006 DO Not Use Split Influenza [id number] Virus Vaccine 12552 Given 01/08/2005 DO Not Use Split Influenza Virus Vaccine 08855 Given 05/29/2004 Pneumococcal Immunization 14942 Given 11/12/2003 Td Immunization, For Use In Individuals 7 Years Or Older 45208 Given 11/12/2003 Td Immunization, For Use In Individuals 7 Years Or Older 65531 Given 01/18/2003 DO Not Use Split Influenza Virus Vaccine 35154 Given 01/18/2003 DO Not Use Split Influenza Virus Vaccine 40031 Given 02/01/2002 DO Not Use Split Influenza Virus Vaccine 65950 Given 12/29/2000 Influenza Immunization 81821 Given 12/29/2000 DO Not Use Split Influenza Virus Vaccine 88017 Given 01/12/2000 DO Not Use Split Influenza Virus Vaccine 51106 Given 01/17/1999 DO Not Use Split Influenza Virus Vaccine 94444 Given 01/03/1998 Influenza Immunization 01907 Given 01/03/1998 Influenza Immunization 40738 Given 01/05/1997 Influenza Immunization Vital Signs Date Vital Result Comment 05/04/2019 1:11pm BP Systolic 140 mmHg BP Diastolic 80 mmHg Heart Rate 80 /min Body Temperature 97.7 F Respiratory Rate 20 /min Weight 273.00 lb 04/10/2019 8:52am BP Systolic 126 mmHg BP Diastolic 64 mmHg Heart Rate 72 /min Body Temperature 96.9 F Height 64 inches 5'4" Weight 273.00 lb BMI (Body Mass Index) 46.9 kg/m2 Results Test Acquired Date Facility Test Result H/L Range Note Comprehensive 04/10/2019 [facility] Neeta(a) Sodium 134 mEq/L 134-149 Metabolic Prof Potassium 4.1 mEq/L 3.6-5.5 Chloride 104 mEq/L 94-112 Carbon Dioxide 26 mEq/L 21-32 Glucose 214 mg/dL High 70-105 1 BUN 14 mg/dL 6-26 Creatinine 0.8 mg/dL 0.6-1.4 BUN/Creat Ratio 17.5 CALC 8.0-36.0 Calcium 10.0 mg/dL 8.6-10.2 Total Protein 7.4 g/dL 6.4-8.3 Albumin 4.7 g/dL 3.8-5.5 Globulin 2.7 g/dL 2.0-4.8 A/G Ratio 1.7 CALC 0.6-2.3 Alk. Phosphatase 62 U/L 22-95 Alt (SGPT) 29 U/L 7-35 Ast (Sgot) 25 U/L 5-34 Total Bilirubin 0.5 mg/dL 0.2-1.3 GFR Non- >60 ml/min/1.73m^ >=60 GFR >60 ml/min/1.73m^ >=60 Laboratory test 03/02/2019 [facility] Hemoglobin A1c 7.9 % % High 4.1-5.7 finding (607)- - (Fma) Comprehensive 11/19/2018 Sarm[facility] Neeta(a) Sodium 137 mEq/L 134-149 Metabolic Prof Potassium 4.4 mEq/L 3.6-5.5 Chloride 104 mEq/L 94-112 Carbon Dioxide 24 mEq/L 21-32 Glucose 243 mg/dL High 70-105 2 BUN 11 mg/dL 6-26 Creatinine 0.7 mg/dL 0.6-1.4 BUN/Creat Ratio 15.7 CALC 8.0-36.0 Calcium 9.2 mg/dL 8.6-10.2 Total Protein 6.8 g/dL 6.4-8.3 Albumin 4.4 g/dL 3.8-5.5 Globulin 2.4 g/dL 2.0-4.8 A/G Ratio 1.8 CALC 0.6-2.3 Alk. Phosphatase 61 U/L 22-95 Alt (SGPT) 35 U/L 7-35 Ast (Sgot) 28 U/L 5-34 Total Bilirubin 0.5 mg/dL 0.2-1.3 GFR Non- >60 ml/min/1.73m^ >=60 GFR >60 ml/min/1.73m^ >=60 Laboratory test 11/19/2018 [facility] Hemoglobin A1c 7.2 % High 4.1- 5.7 finding (607)- - (Fma) 1 consistent w/ previous results 2 NON-FASTING Procedures Date Code Description Status 03/02/2019 06787 Finger Or Heel Stick Completed 09/30/2017 648503578 Diabetic Retinal Eye Exam Completed 05/10/2017 [id number] Diabetic Foot Exam Completed 09/26/2013 [id number] Colonoscopy Completed Medical Devices Description No Information Available Encounters Type Date Location Provider Dx Diagnosis Office Visit 04/10/2019 [facility] Yoselin Jain, E11.65 Type 2 diabetes 9:00a PA mellitus with hyperglycemia Office Visit 03/07/2019 [facility] Yoselin Jain, E11.65 Type 2 diabetes 9:00a PA mellitus with hyperglycemia Office Visit 11/19/2018 [facility] Mahad Alicea M51.36 Other intervertebral 10:15a Jazzy Siegel. disc degeneration, lumbar region E11.65 Type 2 diabetes mellitus with hyperglycemia E88.81 Metabolic syndrome J45.20 Mild intermittent asthma, uncomplicated Assessments Date Code Description Provider 05/04/2019 R55 Syncope and collapse Lenore Gonzalez [facility] 05/04/2019 E11.65 Type 2 diabetes mellitus with hyperglycemia Lenore Gonzalez [facility] 05/04/2019 E88.81 Metabolic syndrome Lenore Gonzalez, [facility] 05/04/2019 I10 Essential (primary) hypertension Lenore Gonzalez [facility] 05/04/2019 J32.8 Other chronic sinusitis Lenore Gonzalez [facility] 04/10/2019 E11.65 Type 2 diabetes mellitus with hyperglycemia LLUVIA Cyr 03/07/2019 E11.65 Type 2 diabetes mellitus with hyperglycemia LLUVIA Cyr 03/02/2019 E11.65 Type 2 diabetes mellitus with hyperglycemia Mahad Siegel M.D. 12/16/2018 Z23 Encounter for immunization Mahad Siegel M.D. 11/19/2018 M51.36 Other intervertebral disc degeneration, Mahad Siegel M.D. lumbar region 11/19/2018 E11.65 Type 2 diabetes mellitus with hyperglycemia Mahad Siegel M.D. 11/19/2018 E88.81 Metabolic syndrome Mahad Siegel M.D. 11/19/2018 J45.20 Mild intermittent asthma, uncomplicated Mahad Siegel M.D. Plan of Treatment Future Appointment(s):06/13/2019 9:00 am - LLUVIA Cyr at [facility]05/04/2019 - Lenore Gonzalez, [id number] Syncope and collapseNew Labs: Urinalysis W/O Micro Physical|, Ordered: 05/04/19Comments:unclear etiology, physical assessment reassuringlabs today, call [facility] if condition changes/ worsens in any wayE11.65 Type 2 diabetes mellitus with pwucpkryuzhqgV32.81 Metabolic vegcfnzgF82 Essential (primary) looswbibrjtaJ77.8 Other chronic sinusitisAllComments:Medication Management Patient Understands medications he ' s taking? Yes No Are there Barriers to Adherence? Yes No Has the patient been asked about herbal supplements and therapies, andOTC meds? Yes No As always, we strongly encourage a healthy diet and making physical activity a part of your every day life. If you have questions about how or where to start, please contact the office. Functional Status Description No Information Available Mental Status Description No Information Available Referrals Refer to Reason for Referral Status Appt Date Libert[place] I medical marijuana or epidural injection [facility] [address] [place] [id number] [phone]
--- NOTE | 2019-06-03 22:23 | ED ---
Neurological HPI - HPI Summary HPI Summary: 69 year old male presents to the ED with a chief complaint of right-sided facial droop starting yesterday, worse today. Patient also reports lightheadedness but denies headache, difficulty ambulating, decreased strength, or decreased vision. He reports an episode of near syncopy 3 weeks ago. No history of prior stroke or neurological deficit. PMHx of DM and HTN. PSHx of sigmoidoscopy. Home Medications Medication Instructions Recorded Confirmed Type Ammonium Lactate 1 applic TOPICAL BID 09/22/13 06/03/19 History Atorvastatin* [Lipitor*] 10 mg PO QPM 06/15/14 06/03/19 History metFORMIN* [Glucophage*] 1,000 mg PO BID 06/15/14 06/03/19 History Sigurd-3 Acid Ethyl Esters [Lovaza] 1 gm PO BID 09/08/17 06/03/19 History Oxycodone HCl/Acetaminophen 0.5 tab PO QPM 09/08/17 06/03/19 History [Endocet] glipiZIDE TAB* [Glucotrol TAB*] 10 mg PO QAM 09/08/17 06/03/19 History lisinopriL [Lisinopril] 5 mg PO QPM 09/08/17 06/03/19 History Beclomethasone Dipropionate [Qnasl] 2 spray BOTH NARES QPM 08/04/18 06/03/19 History LevoCETirizine TAB (NF) [Xyzal TAB 5 mg PO DAILY 08/04/18 06/03/19 History (NF)] Nystatin/Triamcin 15 gm TP TID 08/04/18 06/03/19 History [Nystatin-Triamcinolone Ointm] Docusate Sodium [Stool Softener] 100 mg PO DAILY 12/27/18 06/03/19 History - History of Current Complaint Chief Complaint: EDDizziness Stated Complaint: WEAKNESS Time Seen by Provider: 06/03/19 22:17 Hx Obtained From: Patient Onset/Duration: Sudden Onset, Started days ago - yesterday, Still Present Timing: Constant Onset Severity: Mild Current Severity: Moderate Pain Intensity: 0 Pain Scale Used: 0-10 Numeric Character: Lightheaded, Paralysis - facial Aggravating: Unknown Alleviating: Unknown - Allergy/Home Medications Allergies/Adverse Reactions: Allergies Allergy/AdvReac Type Severity Reaction Status Date / Time baicalin [From Limbrel] Allergy flu like Verified 06/03/19 22:08 symptoms catechin [From Limbrel] Allergy flu like Verified 06/03/19 22:08 symptoms ciprofloxacin Allergy muscle/ligament Verified 06/03/19 22:08 issues lactose Allergy GI Upset Verified 06/03/19 22:08 Sulfa (Sulfonamide Allergy Rash Verified 06/03/19 22:08 Antibiotics) CHOCOLATE Allergy Headache Uncoded 06/03/19 22:08 Home Medications: Home Medications Ammonium Lactate 1 applic TOPICAL BID 09/22/13 [History Confirmed 06/03/19] Atorvastatin* [Lipitor*] 10 mg PO QPM 06/15/14 [History Confirmed 06/03/19] metFORMIN* [Glucophage*] 1,000 mg PO BID 06/15/14 [History Confirmed 06/03/19] Sigurd-3 Acid Ethyl Esters [Lovaza] 1 gm PO BID 09/08/17 [History Confirmed 06/02] Oxycodone HCl/Acetaminophen [Endocet] 0.5 tab PO QPM 09/08/17 [History Confirmed 06/03/19] glipiZIDE TAB* [Glucotrol TAB*] 10 mg PO QAM 09/08/17 [History Confirmed ] lisinopriL [Lisinopril] 5 mg PO QPM 09/08/17 [History Confirmed 06/03/19] Beclomethasone Dipropionate [Qnasl] 2 spray BOTH NARES QPM 08/04/18 [History Confirmed 06/03/19] LevoCETirizine TAB (NF) [Xyzal TAB (NF)] 5 mg PO DAILY 08/04/18 [History Confirmed 06/03/19] Nystatin/Triamcin [Nystatin-Triamcinolone Ointm] 15 gm TP TID 08/04/18 [History Confirmed 06/03/19] Docusate Sodium [Stool Softener] 100 mg PO DAILY 12/27/18 [History Confirmed 10/15] predniSONE [Prednisone 20 MG TAB] 40 mg PO DAILY 5 Days #10 tablet 06/03/19 [Rx] PMH/Surg Hx/FS Hx/Imm Hx Endocrine/Hematology History: Reports: Hx Diabetes - ON ORAL MEDICATIONS Cardiovascular History: Reports: Hx Hypertension - MEDICATED, Hx Valvular Heart Disease - valve leakage Denies: Hx Pacemaker/ICD Comment Only: Other Cardiovascular Problems/Disorders - HX ANEURYSM THORASIC AORTA Respiratory History: Reports: Hx Asthma - IMPROVED SINCE HAVING SINUS SURGERY AROUND 2009, Hx Sleep Apnea Denies: Other Respiratory Problems/Disorders GI History: Reports: Other GI Disorders - hemmorhoids History: Reports: Hx Kidney Stones, Other Problems/Disorders - bph Denies: Hx Renal Disease Musculoskeletal History: Reports: Hx Arthritis - knees, Hx Back Problems, Hx Tendonitis - HISTORY OF IN [place], RIGHT WRIST Denies: Other Musculoskeletal History Sensory History: Reports: Hx Cataracts, Hx Contacts or Glasses, Hx Hearing Aid - landy Opthamlomology History: Reports: Hx Cataracts, Hx Contacts or Glasses Neurological History: Reports: Other Neuro Impairments/Disorders - PAIN CLINIC PT Psychiatric History: Denies: Hx Panic Disorder - Surgical History Surgery Procedure, Year, and Place: 2009-SINUS SURGERY-WAS TOLD BY ANESTHESIOLOGIST- THAT HE HAD A DIFFICULT [id number]. FINE. SIGMOIDOSCOPY- 6 MONTHS AGO- 2 POLYPS REMOVED. KNEE SURGERY-1994. CARPAL TUNNEL RELEASE-, BILATERAL HANDS. TONSILLECTOMY AND ADENOIDECTOMY- AGE 3. Rt DEQUERVAINS SURGERY- Hx Anesthesia Reactions: Yes - SLOW TO WAKE UP Infectious Disease History: No Infectious Disease History: Denies: History Other Infectious Disease, Traveled Outside the [place] in Last 30 Days - Family History Known Family History: Positive: Cardiac Disease, Hypertension, Diabetes - Social History Alcohol Use: Rare Alcohol Amount: Less then one drink per week Substance Use Type: Reports: Marijuana Substance Use Comment - Amount & Last Used: Medical Smoking Status (MU): Never Smoked Tobacco Have You Smoked in the Last Year: No Review of Systems Negative: Fatigue Eyes: Negative Negative: Myalgia Neurological/Mental Status: Other - facial paralysis Positive: Weakness - facial, Numbness - facial. Negative: Headache All Other Systems Reviewed And Are Negative: Yes Physical Exam - Summary Physical Exam Summary: Appearance: Obese, well-nourished, lying in bed comfortably. Skin: Warm, dry, no obvious rash Eyes: sclera anicteric, no conjunctival pallor HENT: mucous membranes moist, pharynx appears normal. Neck: Supple, nontender Respiratory: Clear to auscultation, no signs of respiratory distress Cardiovascular: Normal S1, S2. No murmurs. Normal distal pulses in tibial and radial bilaterally. Abdomen: Soft, nontender, normal active bowel sounds present Musculoskeletal: Normal, Strength/ROM Intact Neurological: A&Ox3, awake and alert, mentation is normal, speech is fluent and appropriate. Cranial nerve exam shows dense facial paresis with involvement of forehead, consistent with a peripheral lesion. Otherwise cranial nerves are intact. No weakness in extremities, speech is fluent. No hemianopia. No ataxia noted in movements of extremities. Psychiatric: affect is normal, does not appear anxious or depressed Triage Information Reviewed: Yes Vital Signs On Initial Exam: Initial Vitals Temp Pulse Resp BP Pulse Ox 98.6 F 85 16 171/93 97 06/03/19 22:06 06/03/19 22:06 06/03/19 22:06 06/03/19 22:06 06/03/19 22:06 Vital Signs Reviewed: Yes Procedures - Sedation Patient Received Moderate/Deep Sedation with Procedure: No Diagnostics - Vital Signs Vital Signs Temp Pulse Resp BP Pulse Ox 06/03/19 22:06 98.6 F 85 16 171/93 97 - Laboratory Lab Statement: Any lab studies that have been ordered have been reviewed, and results considered in the medical decision making process. Course/Dx - Course Course Of Treatment: 69 year old male presents to the ED with a chief complaint of right-sided facial droop starting yesterday, worse today. Patient also reports lightheadedness but denies headache, difficulty ambulating, decreased strength, or decreased vision. He reports an episode of near syncopy 3 weeks ago. No history of prior stroke or neurological deficit. PMHx of DM and HTN. A& Ox3, awake and alert, mentation is normal, speech is fluent and appropriate. Cranial nerve exam shows dense facial paresthesia with involvement of forehead. Otherwise cranial nerves are intact. No weakness in extremities or hemianopia. No ataxia noted in movements of extremities. Patient is diagnosed with Iraheta's Palsy. I prescribed him Prednisone for the palsy. Patient will be discharged home. I discussed my findings with the patient and he understands and agrees to the plan. - Diagnoses Provider Diagnoses: Iraheta's palsy Discharge ED - Sign-Out/Discharge Documenting (check all that apply): Patient Departure - discharge home - Discharge Plan Condition: Good Disposition: HOME Prescriptions: predniSONE [Prednisone 20 MG TAB] 40 mg PO DAILY 5 Days #10 tablet Patient Education Materials: Iraheta Palsy (ED) Referrals: Mahad Siegel MD [Primary Care Provider] - Additional Instructions: This will take a number of weeks to improve, but typically it does hit its worst in the first 48 hours. The prednisone should help speed resolution of the problem and reduce the likelihood of permanent facial weakness, but it will also make your blood sugar go up while you're on it. As long as it stays below 300 that's ok in the short run. If the BS consistently is above 300 I would call your doctor and stop the prednisone. - Billing Disposition and Condition Condition: GOOD Disposition: Home - Attestation Statements Document Initiated by Eliecer: Yes Documenting Joseibe: Cristofer Farmer Provider For Whom Eliecer is Documenting (Include Credential): Dr. Van Edwards Attestation: ICristofer, scribed for Dr. Van Loomis on 06/05/19 at 0134. Scribe Documentation Reviewed: Yes Provider Attestation: The documentation as recorded by the Cristofer edwards accurately reflects the service I personally performed and the decisions made by me, Dr. Van Loomis Status of Scrmichelle Document: Viewed
[2019-06-03 23:21] VITALS: BP 170/90
== END 2019-06-03 23:00 | disposition home or self-care (01) ==
LOC: ED 22:01
DX: G51.0 Bell's palsy (principal); R42 Dizziness and giddiness; E11.9 Type 2 diabetes mellitus without complications; Z79.84 Long term (current) use of oral hypoglycemic drugs; I10 Essential (primary) hypertension; Z79.899 Other long term (current) drug therapy; Z88.1 Allergy status to other antibiotic agents; Z91.011 Allergy to milk products; Z88.2 Allergy status to sulfonamides; Z88.8 Allergy status to other drugs, medicaments and biological substances; Z91.018 Allergy to other foods
CPT/HCPCS: 99283; J7512

== ENCOUNTER 2020-06-12 11:20 | Inpatient (IN) ==
[2020-06-12 13:56] LABS: ABS Basophils 0.1 10^3/ul (0-0.2); ABS Eosinophils 0.1 10^3/ul (0-0.6); ABS Lymphocytes 1.6 10^3/ul (1.0-4.8); ABS Monocytes 1.2 10^3/ul (0-0.8); ABS Neutrophils 15.9 10^3/ul (1.5-7.7); Eosinophil % 0.4 %; Hematocrit 37 % (42-52); Hemoglobin 12.9 g/dL (14.0-18.0); Lymphocyte % 8.7 %; Mean Corpuscular HGB Conc 35 g/dL (31-36); Mean Corpuscular Hemoglobin 28 pg (27-31); Mean Corpuscular Volume 81 fL (80-94); Mean Platelet Volume 8.8 fL (7.4-10.4); Platelet Count 292 10^3/uL (150-450); Red Blood Count 4.61 10^6 /uL (4.18-5.48); Red Cell Distribution Width 14 % (10-15)
[2020-06-12 14:13] LABS: Urine Appearance Clear; Urine Bilirubin Negative (Negative); Urine Blood 1+ (Negative); Urine Color Yellow; Urine Glucose Negative (Negative); Urine Ketones Negative (Negative); Urine Nitrite Negative (Negative); Urine Protein 1+(30 mg/dL) (Negative); Urine Specific Gravity 1.012 (1.010-1.030); Urine Urobilinogen Negative (Negative)
[2020-06-12 14:19] LABS: Urine Bacteria Absent (Absent); Urine Red Blood Cell Trace(0-2/hpf) (Absent); Urine Squamous Epithelial Cell Present (Absent); Urine White Blood Cell Trace(0-5/hpf) (Absent)
[2020-06-12 14:38] LABS: ALT 25 U/L (7-52); AST 63 U/L (13-39); Albumin 3.7 g/dL (3.2-5.2); Alkaline Phosphatase 45 U/L (34-104); Anion Gap 5 mmol/L (2-11); BUN/Creatinine Ratio 16.7 (8-20); Blood Urea Nitrogen 13 mg/dL (6-24); CO2 Carbon Dioxide 26 mmol/L (22-32); Calcium 8.9 mg/dL (8.6-10.3); Chloride 97 mmol/L (101-111); EGFR African American 118.4 (>60); EGFR Non-African American 97.8 (>60); Globulin 3.7 g/dL (2-4); Glucose 131 mg/dL (70-100); Lipase 17 U/L (11.0-82.0); Sodium 128 mmol/L (135-145); Total Protein 7.4 g/dL (6.4-8.9)
[2020-06-12] MEDS ORDERED: Albuterol (2.5 MG) 0.5 % CONC 0.5 ML NEB.SOLN INH ONE (14:50)
[2020-06-12] MEDS ORDERED: Dextrose 50% Syringe 50 ml 25 GM/50 ML SYRINGE IV PUSH ONE ×2 (14:50)
[2020-06-12] MEDS ORDERED: CALCIUM GLUCONATE 1GM/50ML NS 1 GM/50 ML BAG IV ONE (14:50)
[2020-06-12] MEDS ORDERED: NS 0.9% 1000 ml BAG 1,000 ML IV ONE (14:51)
[2020-06-12] MEDS ORDERED: Iodixanol (CONTRAST) 320 MG/ML 100 ML SDV IV ONE (15:09)
[2020-06-12 15:53] LABS: Anion Gap 9 mmol/L (2-11); BUN/Creatinine Ratio 15.8 (8-20); Blood Urea Nitrogen 12 mg/dL (6-24); CO2 Carbon Dioxide 27 mmol/L (22-32); Calcium 9.4 mg/dL (8.6-10.3); Chloride 98 mmol/L (101-111); EGFR Non-African American 100.8 (>60); Glucose 108 mg/dL (70-100); Potassium 3.6 mmol/L (3.5-5.0); Sodium 134 mmol/L (135-145)
[2020-06-12] MEDS ORDERED: Piperacillin/Tazobac ADVAN 3.375 GM in NS 0.9% 100 ml BAG 100 ML IV ONE (16:06)
[2020-06-12 19:56] LABS: Troponin I 0.05 ng/mL (<0.03)
[2020-06-12] MEDS ORDERED: Ondansetron 4 mg VIAL 2 MG/ML 2 ml VIAL IV PRN (20:38)
[2020-06-12 21:05] LABS: Potassium 7.9 mmol/L (3.5-5.0); Troponin I 0.09 ng/mL (<0.03)
[2020-06-12] MEDS ORDERED: Albuterol HFA INHALER 8 gm MDI INH PRN (22:38)
[2020-06-12] MEDS ORDERED: Zosyn per Pharmacy NOTE FOLLOW UP SCH (23:00)
[2020-06-12] MEDS: ZOSYN 3.375 GM Q8H per EXTENDED INFUSION IV SCH (23:36)
[2020-06-13] MEDS ORDERED: Lidocaine 2% PF 5 ML VIAL IV SCH ×2
[2020-06-13] MEDS ORDERED: fentaNYL 250 mcg/5 ml 50 MCG/ML 5 ml VIAL (250 MCG) IV SCH ×2
[2020-06-13] MEDS ORDERED: Propofol 10 MG/ML 20 ML BTL IV SCH ×2
[2020-06-13] MEDS ORDERED: Midazolam 2 mg/2 ml VIAL 1 mg/ml 2 ml VIAL (2 mg) IV SLOW PU SCH ×2
[2020-06-13] MEDS ORDERED: Rocuronium 50 mg VIAL 10 mg/ml 5 ml VIAL (50 mg) IV SCH ×3
[2020-06-13] MEDS: Heparin 5000 UNITS/ML 1 mL VIAL SUBCUT SCH ×4 (01:09→23:28)
[2020-06-13] MEDS: NS 0.9% 1000 ml BAG 1,000 ML IV SCH (02:50)
[2020-06-13] MEDS: ZOSYN 3.375 GM Q8H per EXTENDED INFUSION IV SCH ×5 (02:50→23:28)
[2020-06-13] MEDS ORDERED: Metoprolol Tartrate 5 mg VIAL 5 ml VIAL (1 mg/ml) IV ONE (06:34)
[2020-06-13] MEDS ORDERED: Diltiazem (ADVAN VIAL) 100 MG/100 ML ADDV.BAG IV SCH ×2 (07:16→08:00)
[2020-06-13 07:25] LABS: ABS Basophils 0.1 10^3/ul (0-0.2); ABS Eosinophils 0.2 10^3/ul (0-0.6); ABS Lymphocytes 1.8 10^3/ul (1.0-4.8); ABS Monocytes 1.2 10^3/ul (0-0.8); ABS Neutrophils 10.4 10^3/ul (1.5-7.7); Eosinophil % 1.6 %; Hematocrit 40 % (42-52); Hemoglobin 13.2 g/dL (14.0-18.0); Mean Corpuscular HGB Conc 33 g/dL (31-36); Mean Corpuscular Hemoglobin 28 pg (27-31); Mean Corpuscular Volume 83 fL (80-94); Mean Platelet Volume 8.4 fL (7.4-10.4); Platelet Count 283 10^3/uL (150-450); Red Blood Count 4.78 10^6 /uL (4.18-5.48); Red Cell Distribution Width 14 % (10-15); White Blood Count 13.6 10^3/uL (3.5-10.8)
[2020-06-13] MEDS: Pantoprazole VIAL 40 MG VIAL IV SCH (08:11)
[2020-06-13 08:30] LABS: Albumin 3.6 g/dL (3.2-5.2); Albumin/Globulin Ratio 1.1 (1-3); BUN/Creatinine Ratio 13.1 (8-20); Calcium 8.7 mg/dL (8.6-10.3); EGFR African American 108.7 (>60); EGFR Non-African American 89.8 (>60); Globulin 3.4 g/dL (2-4); Potassium 3.8 mmol/L (3.5-5.0); Total Bilirubin 1.4 mg/dL (0.2-1.0)
[2020-06-13 09:25] LABS: Indirect Bilirubin 1.1 mg/dL (0.3-1.0)
[2020-06-13] MEDS ORDERED: Perflutren Lipid Microsphere 3 ML VIAL ONE (12:19)
[2020-06-13] MEDS ORDERED: Bupivacaine 0.25% EPI 200,000 30 ML SDV ONE (17:48)
[2020-06-13] MEDS ORDERED: Etomidate 20 mg/10 ml 2 MG/ML 10 ml VIAL ONE (18:00)
[2020-06-13] MEDS ORDERED: Dexamethasone IV 4 MG/ML VIAL 1 ml VIAL ONE (18:25)
[2020-06-13] MEDS ORDERED: Ondansetron 4 mg VIAL 2 MG/ML 2 ml VIAL ONE (18:25)
[2020-06-13] MEDS ORDERED: Propofol 10 MG/ML 20 ML BTL ONE ×2 (18:27→19:05)
[2020-06-13] MEDS ORDERED: Naloxone 0.4 mg VIAL 0.4 mg/ml 1 ml VIAL IV PRN (20:11)
[2020-06-13] MEDS ORDERED: diPHENhydraMINE IV 50 MG/ML 1 ml VIAL (BENADRYL) IV PRN (20:11)
[2020-06-13] MEDS ORDERED: fentaNYL 100 mcg/2 ml 50 MCG/ML VIAL ONE (20:12)
[2020-06-13] MEDS: fentaNYL 100 mcg/2 ml 50 MCG/ML VIAL IV PRN ×4 (20:18→21:00)
[2020-06-14] MEDS: Morphine 2 MG/ML SYRINGE IV PRN ×3 (02:06→08:46)
[2020-06-14] MEDS: Heparin 5000 UNITS/ML 1 mL VIAL SUBCUT SCH ×2 (05:23→14:12)
[2020-06-14] MEDS: NS 0.9% 1000 ml BAG 1,000 ML IV SCH (06:03)
[2020-06-14 06:34] LABS: ABS Lymphocytes 0.9 10^3/ul (1.0-4.8); ABS Monocytes 0.7 10^3/ul (0-0.8); Hematocrit 36 % (42-52); Lymphocyte % 7.9 %; Mean Corpuscular HGB Conc 33 g/dL (31-36); Mean Corpuscular Hemoglobin 28 pg (27-31); Mean Corpuscular Volume 83 fL (80-94); Mean Platelet Volume 8.4 fL (7.4-10.4); Platelet Count 280 10^3/uL (150-450); Red Blood Count 4.33 10^6 /uL (4.18-5.48); Red Cell Distribution Width 14 % (10-15); White Blood Count 11.6 10^3/uL (3.5-10.8)
[2020-06-14] MEDS: ZOSYN 3.375 GM Q8H per EXTENDED INFUSION IV SCH (06:51)
[2020-06-14 06:54] LABS: Albumin 3.4 g/dL (3.2-5.2); Albumin/Globulin Ratio 1.1 (1-3); BUN/Creatinine Ratio 23.7 (8-20); EGFR African American 96.6 (>60); EGFR Non-African American 79.9 (>60); Globulin 3.1 g/dL (2-4); Potassium 3.9 mmol/L (3.5-5.0); Total Bilirubin 0.9 mg/dL (0.2-1.0); Total Protein 6.5 g/dL (6.4-8.9)
[2020-06-14] MEDS: Pantoprazole VIAL 40 MG VIAL IV SCH (08:47)
[2020-06-14] MEDS ORDERED: oxyCODONE/Acetamin 5/325 mg TAB PO PRN (11:50)
[2020-06-14] MEDS ORDERED: Insulin GLARGINE 100 un/ml 10 ml VIAL SUBCUT ONE (13:12)
[2020-06-14 17:04] VITALS: BP 119/74
== END 2020-06-14 17:20 | disposition home or self-care (01) | DRG 263 ==
LOC: ED 11:20 → MED 11:20 → OBSVTOIN 20:28 → MED 23:10 → MEDTELE 06-13 09:05
PROVIDERS: ADMIT Internal Medicine; ATTEND Hospitalist